=== PATIENT | female | born 1990 | race Caucasian/White ===

== ENCOUNTER 2020-08-22 08:53 | Outpatient (CLI) | payer OTHER, SELFPAY ==
--- NOTE | ~2020-08-22 | MM_ITS ---
.... EXAMINATION: MM diagnostic nisha BI w finesse HISTORY: Left nipple discharge for 6 years TECHNIQUE: ML, MLO and cc 3-D tomosynthesis images of both breasts were performed and synthetic 2-D i mages were generated. CAD analysis was submitted and interpreted. COMPARISON: None BREAST PARENCHYMAL COMPOSITION: The breasts are almost entirely fatty. FINDINGS: There is a circumscribed lobular approximately 6 mm mass in the lower outer right breast. D iagnostic right mammogram and targeted right breast ultrasound examination are recommended. No architectural distortion of either breast is noted. There are punctate benign microcalcifications. No malignant calcification in either breast is evident . No skin thickening or retraction. No other suspicious mass of either breast is evident. IMPRESSION 1. 6 mm circumscribed mass, lower outer right breast 2. Diagnostic right mammogram and targeted right breast ultrasound examination are recommended. BI-RADS Category 0: Incomplete: Needs additional imaging evaluation. Reviewed, dictated and finalized at location [facility]. IMPRESSION 1. 6 mm circumscribed mass, lower outer right breast 2. Diagnostic right mammogram and targeted right breast ultrasound examination are recommended. BI-RADS Category 0: Incomplete: Needs additional imaging evaluation.
--- NOTE | ~2020-08-22 | US_ITS ---
EXAMINATION: US breast RT limited HISTORY: 6 mm circumscribed mass, lower outer right breast TECHNIQUE: Additional 3-D tomosynthesis images of the right breast were performed and synthetic 2-D i mages were generated. CAD analysis was submitted and interpreted. High resolution lower outer quadran t right breast ultrasound was performed. COMPARISON: 08/22/2020 FINDINGS: MAMMOGRAPHIC FINDINGS: A circumscribed lobular 6 mm opacity is identified anteriorly in the lower outer quadrant of the righ t breast. The mammographic features suggest benign process. ULTRASOUND: No sonographic correlate is identified for the 6 cm lobular circumscribed mammographic opacity in the lower outer quadrant of the right breast. IMPRESSION: 1. No mammographic evidence of malignancy 2. 6 month diagnostic right mammogram follow-up is recommended. BI-RADS category 3, probably benign findings. Reviewed, dictated and finalized at location [facility].
== END 2020-08-22 08:54 ==
PROVIDERS: Visit Provider Advanced Practice Midwife
DX: N64.52 Nipple discharge (principal)
CPT/HCPCS: 76642; 77062; 77066; G0279

== ENCOUNTER 2020-10-12 19:43 | Emergency (ER) | payer OTHER, SELFPAY ==
--- NOTE | ~2020-10-12 | CT_ITS ---
EXAMINATION: CT abdomen pelvis wo con DATE: 10/12/2020 21:03 INDICATION: Left flank pain for one week TECHNIQUE: Computed tomography (CT) of the abdomen and pelvis was performed without intravenous contr ast. Automated exposure control and iterative reconstruction technique were employed. Exam dose: 138 4.53 mGy-cm total exam DLP. COMPARISON: None. FINDINGS: Mild linear discoid atelectasis or more likely scarring in the posterior left lung base, le ft lower lobe. No infiltrate or consolidation at the lung bases. Normal heart size. No pericardial or pleural effusion. Very small sliding hiatal hernia. The gallbladder is contracted. No hepatic space-occupying mass lesion. Splenic size is within normal range. No pancreatic mass lesion or calcification or ductal dilatation. No bile duct dilatation. Normal morphology of the adrenal glands. No renal mass lesion or urinary tract calculus or hydroureteronephrosis is detected. The urinary blad jamel is relatively evacuated but essentially unremarkable. Retroverted uterus. Normal caliber of the abdominal aorta. No intraperitoneal or retroperitoneal or pelvic mass lesion or adenopathy or ascites. Normal appendix. No bowel obstruction, bowel wall thickening, pneumatosis or intraperitoneal free air . Included skeletal structures are unremarkable. IMPRESSION: No urinary tract calculus or hydroureteronephrosis Very small sliding hiatal hernia Reviewed, dictated and finalized at [facility]. Reviewed, dictated and finalized at location [facility]. 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
[2020-10-12 19:48] VITALS: BP 151/92; PULSE 83; RESP 20; TEMP 36.6; O2SAT 98
[2020-10-12 20:19] VITALS: BP 151/92; PULSE 83; RESP 20; TEMP 36.6; O2SAT 98
[2020-10-12 20:34] LABS: Hematocrit 42.5 % (35.0-49.0); Hemoglobin 14.2 g/dL (12.0-15.0); Mean Corpuscular HGB Conc 33.4 g/dL (32.0-36.0); Mean Corpuscular Hemoglobin 30.9 pg (27.0-31.0); Mean Corpuscular Volume 92.6 fL (78.0-102.0); Mean Platelet Volume 9.4 fl (9.2-11.8); Platelet Count Result 211 K/mm3 (150-420); Red Blood Count 4.59 M/mm3 (4.20-5.40); Red Cell Distribution Width 13.1 % (11.6-14.4); White Blood Count 9.4 K/mm3 (4.8-10.8)
[2020-10-12 20:35] LABS: Appearance Urine Clear (Clear); Bilirubin Urine Negative (Negative); Color Urine Yellow (Yellow); Glucose Urine UA Negative (Negative); Ketones Urine Negative (Negative); Leukocyte Esterase Ur Trace (Negative); Nitrate Urine Negative (Negative); Protein Urine Negative (Negative); Urobilinogen Urine 0.2 mg/dL (0.2-1.0)
[2020-10-12 20:38] LABS: Add Urine Microscopic? YES; Blood Urine Trace (Negative)
[2020-10-12 20:41] LABS: Squamous Epithelial Cell Urine Few /hpf (Few)
[2020-10-12 20:42] LABS: Bacteria Urine Trace /hpf; Pregnancy On Board Control Positive; Urine Pregnancy Test Negative
[2020-10-12 20:48] LABS: Alanine Aminotransferase 18 U/L (14-59); Albumin Level 3.6 g/dL (3.4-5.0); Alkaline Phosphatase 129 U/L (46-116); Anion Gap 11 mmol/L (8-16); Aspartate Amino Transferase < 10 U/L (15-37); Bilirubin,Total 0.2 mg/dL (0.00-1.00); Blood Urea Nitrogen 14 mg/dL (7-18); Calcium 8.8 mg/dL (8.5-10.1); Carbon Dioxide 25 mmol/L (21-32); Chloride 101 mmol/L (98-108); Estimated CRCL calculation 107 ml/min; Estimated Glomerular Filt Rate > 60; Glucose 155 mg/dL (70-99); Osmolality Calculated 287 mOsm/kg (285-295); Potassium 3.8 mmol/L (3.5-5.1); Sodium 137 mmol/L (136-145); Total Protein 7.5 g/dL (6.4-8.2)
[2020-10-12] MEDS: ONDANSETRON HCL ODT 4 MG TABLET PO (21:40)
--- NOTE | 2020-10-12 22:00 | ED.ABDPAIN ---
HPI - Abdominal Pain General Chief Complaint: Abdominal Pain Stated Complaint: back pain/abs pain,sediment in urine Time Seen by Provider: 10/12/20 22:00 Source: patient Mode of arrival: ambulatory Limitations: no limitations History of Present Illness HPI narrative: Patient states she has had pain in her left flank and radiating to the LLQ for the past several days. Pain is moderately severe, ongoing, and dull. Nothing makes this better or worse at home, and that is what brings her in. Related Data Hx Last Menstrual Period: periods are irregular Patient : No Home Medications Medication Instructions Recorded Confirmed bupropion HCl 300 mg PO DAILY 10/12/20 10/12/20 clonazepam 0.5 mg PO BID 10/12/20 10/12/20 doxycycline monohydrate 100 mg PO DAILY 10/12/20 10/12/20 escitalopram oxalate 20 mg PO DAILY 10/12/20 10/12/20 Allergies Allergy/AdvReac Type Severity Reaction Status Date / Time No Known Allergies Allergy Verified 10/12/20 20:14 Review of Systems Review of Systems: Narrative: negative 8 point review of systems Constitutional: Constitutional: Reports no additional constitutional complaints PMFSH Past Medical History Medical History Anxiety No significant medical problems Surgical History Surgical History No significant past surgical history Family History Family History Father Melanoma Mother Hypertension Social History Social History (Updated 10/12/20 @ 22:10 by Dayron Tarango MD) Smoking status: Never smoker Exam Const: General: no acute distress HENMT: Head: normal to inspection Face and sinus: normal facial exam Mouth: Yes Normal oral and palatal mucosa present Eyes: Conjunctivae: conjunctivae normal EOM: EOMs intact bilaterally Neck: Neck: normal visual inspection Chest: Chest palpation & inspection: normal inspection of the chest Resp: Effort & Inspection: normal respiratory effort Auscultation: clear to auscultation bilaterally Cardio: Rate: regular rate Rhythm: regular rhythm GI: GI Palp: Yes Soft to palpation Auscultation: normal bowel sounds Other: non tender : General: Yes no CVA tenderness Back/Spine/Pelvis: Back: no CVA tenderness Skin: General skin exam: normal color Neuro: General: patient oriented x3 and moves all extremities Speech: normal speech Extrem: General: normal to inspection Psych: Mental Status: mental status grossly normal Course Course Emergency Course: Labs and ct reviewed. Given keflex Vital Signs Vital signs: Vital Signs Temperature 36.6 C 10/12/20 19:48 Pulse Rate 83 10/12/20 19:48 Respiratory Rate 10/12/20 19:48 Blood Pressure 151/92 H 10/12/20 19:48 Pulse Oximetry 98 10/12/20 19:48 Temperature 36.6 C 10/12/20 20:19 Pulse Rate 83 10/12/20 20:19 Respiratory Rate 20 10/12/20 20:19 Blood Pressure 151/92 H 10/12/20 20:19 Pulse Oximetry 98 10/12/20 20:19 MDM - Abdominal Pain Lab Data Result diagrams: 10/12/20 20:28 10/12/20 20:28 Labs: Lab Results 10/12/20 10/12/20 10/12/20 Range/Units 20:28 20:28 20:28 WBC 9.4 (4.8-10.8) K/mm3 RBC 4.59 (4.20-5.40) M/mm3 Hgb 14.2 (12.0-15.0) g/dL Hct 42.5 (35.0-49.0) % MCV 92.6 (78.0-102.0) fL MCH 30.9 (27.0-31.0) pg MCHC 33.4 (32.0-36.0) g/dL RDW 13.1 (11.6-14.4) % Plt Count 211 (150-420) K/mm3 MPV 9.4 (9.2-11.8) fl Sodium 137 (136-145) mmol/L Potassium 3.8 (3.5-5.1) mmol/L Chloride 101 (98-108) mmol/L Carbon Dioxide 25 (21-32) mmol/L Anion Gap 11 (8-16) mmol/L BUN 14 (7-18) mg/dL Creatinine 1.02 (0.55-1.02) mg/dL Estim Creat Clear Calc 107 ml/min Estimated GFR > 60 (59 - ) Glucose 155 H (70-99) mg/dL Calculated Osmolality 287 (285-295) mOsm/
[2020-10-12] MEDS: CEPHALEXIN 500 MG CAPSULE PO (22:18)
[2020-10-12 22:22] VITALS: RESP 20; O2SAT 99
== END 2020-10-12 22:24 | disposition home or self-care (01) ==
PROVIDERS: Emergency Provider Emergency Medicine
DX: N30.90 Cystitis, unspecified without hematuria (principal)
CPT/HCPCS: 36415; 74176; 80053; 81001; 81025; 85027; 87086; 87088; 99283; 99284; A9270

== ENCOUNTER 2022-11-26 23:14 | Emergency (ER) | payer OTHER, SELFPAY ==
--- NOTE | ~2022-11-26 | XR_ITS ---
AP and lateral views of the right tibia/fibula Clinical History: Pain Findings: No acute fracture or dislocation is seen. Tibial intramedullary ren with proximal and dista l interlocking screws is in place. Old, healed fracture deformities of the mid to distal tibial and f ibular shafts are present. Joint spaces are preserved without significant erosive or degenerative floresita nge. Soft tissues are unremarkable. Impression: No acute abnormality. Old, healed fracture deformities of the mid to distal tibial and fibular shafts, with tibial intramed ullary ren present. Reviewed, dictated and finalized at location [facility]. 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 Old, healed fracture deformities of the mid to distal tibial and fibular shafts , with tibial intramedullary ren present.
[2022-11-26 23:15] VITALS: BP 163/102; PULSE 78; RESP 18; TEMP 36.5; O2SAT 100
--- NOTE | 2022-11-26 23:26 | ED.GENADULT ---
HPI - General Adult General Chief complaint: Extremity Injury, Lower Stated complaint: Leg Pain Time Seen by Provider: 11/26/22 23:24 History of Present Illness HPI narrative: Cande is a 32F with a PMH of right tib fib fx with ORIF that presented to the ED with pain in her RLE. It started an hour ago after she was walking and hit it on a bed frame. She did not fall and had no other injuties and she has no other concerns. Related Data Home Medications Medication Instructions Recorded Confirmed hydroxyzine HCl 25 mg tablet 25 mg PO PRN PRN Anxiety 11/26/22 11/26/22 norethindrone 1 mg-ethinyl 1 tablet PO DAILY 11/26/22 11/26/22 estradiol 20 mcg ()-iron 75 mg (7) tablet (12/21 (28)) Allergies Allergy/AdvReac Type Severity Reaction Status Date / Time cefdinir Allergy Unknown Verified 11/26/22 23:23 Review of Systems Review of Systems: All systems reviewed & are unremarkable except as noted in HPI and below PMFSH Past Medical History Medical History Anxiety No significant medical problems Surgical History Surgical History No significant past surgical history Family History Family History Father Melanoma Mother Hypertension Social History Social History Smoking status: Never smoker Exam Const: General: healthy appearing, no acute distress and alert Nutritional Appearance: well nourished Orientation/consciousness: patient oriented x3 HENMT: Head: normal to inspection Eyes: Conjunctivae: conjunctivae normal Neck: Neck: normal visual inspection Chest: Chest palpation & inspection: normal inspection of the chest Resp: Effort & Inspection: normal respiratory effort Skin: General skin exam: normal color Neuro: General: patient oriented x3 and moves all extremities Other: sensation intact in the RLE Extrem: Other: -5/5 strength in plantar and dorsiflexion of the foot. -Contusion over right anterior RLE Psych: Mental Status: mental status grossly normal Course Course Emergency Course: Ordered radiographs -She declined pain meds Vital Signs Vital signs: Vital Signs Temperature 97.7 F 11/26/22 23:15 Pulse Rate 78 11/26/22 23:15 Respiratory Rate 18 11/26/22 23:15 Blood Pressure 163/102 H 11/26/22 23:15 Pulse Oximetry 100 11/26/22 23:15 Oxygen Delivery Room Air 11/26/22 23:15 Temperature 97.7 F 11/26/22 23:15 Pulse Rate 78 11/26/22 23:15 Respiratory Rate 18 11/26/22 23:15 Blood Pressure 163/102 H 11/26/22 23:15 Pulse Oximetry 100 11/26/22 23:15 Oxygen Delivery Room Air 11/26/22 23:15 Medical Decision Making MDM Narrative Medical decision making narrative: DDx: contusion vs fracture vs hematoma vs other 3rd Constitution Party conversations: Labs/Imaging: Per my individual interpretation no fracture or acute injury, hardware appears stable Shared decision making: Consultants/ Admitting Providers: Chronic conditions: previous ORIF of tib/fib of RLE Admission consideration: Social Determinants of Health: Vital Signs Vital Signs: Vital Signs Temperature 97.7 F 11/26/22 23:15 Pulse Rate 78 11/26/22 23:15 Respiratory Rate 18 11/26/22 23:15 Blood Pressure 163/102 H 11/26/22 23:15 Pulse Oximetry 100 11/26/22 23:15 Oxygen Delivery Room Air 11/26/22 23:15 Temperature 97.7 F 11/26/22 23:15 Pulse Rate 78 11/26/22 23:15 Respiratory Rate 18 11/26/22 23:15 Blood Pressure 163/102 H 11/26/22 23:15 Pulse Oximetry 100 11/26/22 23:15 Oxygen Delivery Room Air 11/26/22 23:15 Discharge Plan Discharge Clinical Impression: Contusion of leg, right Patient Disposition: Home, Self-Care Condition: Stable Instructions: Contusion in Adults (ED) Prescription
[2022-11-26 23:51] VITALS: BP 150/100; PULSE 86; RESP 18; TEMP 36.6; O2SAT 98
== END 2022-11-26 23:53 | disposition home or self-care (01) ==
PROVIDERS: Emergency Provider Family Medicine
DX: S80.11XA Contusion of right lower leg, initial encounter (principal); W22.03XA Walked into furniture, initial encounter
CPT/HCPCS: 73590; 99283